=== PATIENT | female | born 1990 | race Caucasian/White ===

== ENCOUNTER 2016-06-22 04:05 | Emergency (ER) | payer SELFPAY ==
[~2016-06-22] VITALS: Ht 149.9 cm; Wt 64.5 kg
[2016-06-22 04:12] VITALS: TEMP 37.1; Ht 149.9 cm; Wt 64.5 kg
[2016-06-22] MEDS ORDERED: SODIUM CHLORIDE 0.9% 1000ML 1,000 ML IV STA (04:27)
[2016-06-22] MEDS ORDERED: DEXAMETHASONE SOD INJ 10 MG/ML VIAL IV ONE (04:30)
[2016-06-22] MEDS ORDERED: BCPILLS PO (04:38)
[2016-06-22] MEDS ORDERED: AMPICILLIN/SULBACTAM SOD INJ 3,000 MG in SODIUM CHLORIDE 0.9% 100ML 100 ML IV ONE (04:45)
[2016-06-22 04:52] LABS: BASO % 0.2 %; BASO ABS # 0.03 K/uL (0-0.2); COMPLETE YES; HEMATOCRIT 39.9 % (37-47); IG% 0.2 %; LYMPH % 16.1 %; LYMPH ABS # 2.19 K/uL (1.2-3.4); MEAN CELL VOLUME 88.3 fL (80-100); MEAN CORPUSCULAR HEMOGLOBIN 31.2 pg (25-34); MEAN CORPUSCULAR HGB CONC 35.3 g/dl (32-36); NEUT % 75.5 %; PLATELET COUNT 287 K/uL (130-400); RED BLOOD COUNT 4.52 M/uL (4.2-5.4); WHITE BLOOD COUNT 13.59 K/uL (4.8-10.8)
[2016-06-22 04:55] LABS: URINE APPEARANCE CLEAR (CLEAR); URINE BILIRUBIN NEG (NEG); URINE COLOR YELLOW; URINE EPITHELIAL CELL AUTO >30 /lpf (0-5); URINE NITRITE NEG (NEG); URINE SPECIFIC GRAVITY 1.025 (1.000-1.030); UROBILINOGEN NEG (NEG); ZZUR CULT IF INDIC CLEAN CATCH NO
[2016-06-22 04:56] LABS: MANUAL MICROSCOPIC REQUIRED? NO; REVIEW REQ? NO
[2016-06-22 05:14] LABS: BUN/CREATININE RATIO 11.6 (10-20); CALCIUM 8.6 mg/dl (8.5-10.1); CREATININE 0.6 mg/dl (0.60-1.20); POTASSIUM 3.6 mmol/L (3.5-5.1)
[2016-06-22 05:16] LABS: ALB/GLOB RATIO 0.7 (0.9-2); C-REACTIVE PROTEIN 10.8 mg/dl (0-0.29)
--- NOTE | 2016-06-22 05:23 | EMERGENCY ROOM VISIT NOTE ---
History First contact with patient: 04:20 Chief Complaint: FLU LIKE SX Stated Complaint: THROAT HURTS,EAR PAIN,SEVERE DENNIS,BODYACHE History of Present Illness The patient is a 25 year old female who presents to the Emergency Department by private vehicle for evaluation of her sore throat and headache. She reports that she developed a sore throat on Wednesday. Her symptoms have worsened today. She has pain with swallowing. She is able to tolerate her own oral secretions, however. She reports a headache that she describes as one of the worst headaches of her life. She is tried [id number]-[id number] medications without relief of symptoms. She denies any recent sick contacts. She reports no history of mono or strep. She rates her current discomfort as a 6/10. She denies any blurry vision, double vision, slurred speech, facial droop, unilateral weakness/numbness, numbness/weakness into the extremity's, neck pain , chest pain, cough, nausea, vomiting, or abdominal pain. She denies any chance for . Review of Systems A complete 10-point Review of Systems was discussed with the patient, with pertinent positives and negatives listed in the History of Present Illness. All remaining Review of Systems questions can be considered negative unless otherwise specified. Social History Smoking Status: Never Smoker Smokeless Tobacco Use: No Drug Use: none Current/Historical Medications Scheduled Amoxicillin & Pot Clavulanate (Augmentin 875-125 mg), 875 MG PO BID Control Pills ( Control Pills), 1 TAB PO DAILY Prednisone (Prednisone), 50 MG PO DAILY Allergies Coded Allergies: No Known Allergies (Unverified , 06/22/16) Physical Exam Vital Signs Date Time Temp Pulse Resp B/P Pulse Ox O2 Delivery O2 Flow Rate FiO2 06/22/16 06:25 100 18 106/67 98 Room Air 06/22/16 05:40 108 18 117/59 98 Room Air 06/22/16 04:12 37.1 138 18 120/78 98 Room Air Pain Rating (0-10): 6 Physical Exam VITAL SIGNS - Vital signs and nursing notes were reviewed. GENERAL - Well nourished, well developed 25-year-old female in no acute distress. Pt communicates well with provider and answers questions appropriately. SKIN - Without rash. HEAD - NC/AT with no obvious deformities. EYES - PERRL with EOMI bilaterally. Sclera without injection. Palpebral conjunctiva pink and moist. EARS - No deformities of external structures noted on gross examination bilaterally. No pain elicited with palpation of the tragus bilaterally. External auditory canals without discharge or otorrhea. Tympanic membranes pearly silver without retraction or bulging. No fluid or purulent material visualized behind the TM. Handle of malleus, umbo, cone of light, pars tensa/ flaccid all easily visualized. NOSE - Midline and without cyanosis. No purulent drainage noted. Nasal mucosa without mucus discharge. MOUTH/OROPHARYNX - Without perioral cyanosis. Buccal mucosa pink and moist and without leukoplakia. Tongue midline with equal elevation of palate bilaterally. Moderate tonsillar hypertrophy with erythema noted bilaterally. Good dentition noted. NECK - Neck with FROM. Supple to palpation. No lymphadenopathy noted. No nuchal rigidity. LUNGS - Chest wall symmetric without accessory muscle use, intercostals retractions, or central cyanosis. Normal vesicular breath sounds CTA B/L. No wheezes, rales, or rhonchi appreciated. CARDIAC - RRR with S1/S2. No murmur, rubs, or gallops appreciated. ABDOMEN - Abdominal contour obese without pulsations or visible masses. BS normoactive all four quadrants. No tenderness, palpable masses, hepatosplenomegaly, or ascites noted. EXTREMITIES - No pretibial edema present. +5/5 strength noted in UE/LE bilaterally. NEUROLOGIC - Cranial nerves II through XII grossly intact. Sensory intact to light touch throughout. Patellar reflexes +2/4. Patient able to perform rapid alternating movements appropriately. PSYCH - A&Ox3 and cooperates fully with examiner. Pt is very pleasant and interacts well with examiner. Medical Decision & Procedures ER Provider Diagnostic Interpretation: Radiological imaging and reports were reviewed by myself. Radiologist's Interpretation per [facility] as follows: CT HEAD: No ICH, mass effect or edema. No evidence of acute cortical stroke. Visualized sinuses and mastoid air cells are clear. Laboratory Results 06/22/16 04:35 Red Blood Count 4.52, Mean Corpuscular Volume 88.3, Mean Corpuscular Hemoglobin 31.2, Mean Corpuscular Hemoglobin Concent 35.3, Mean Platelet Volume 10.0, Neutrophils (%) (Auto) 75.5, Lymphocytes (%) (Auto) 16.1, Monocytes (%) (Auto) 7.0, Eosinophils (%) (Auto) 1.0, Basophils (%) (Auto) 0.2, Neutrophils # (Auto) 10.25, Lymphocytes # (Auto) 2.19, Monocytes # (Auto) 0.95, Eosinophils # (Auto) 0.14, Basophils # (Auto) 0.03 06/22/16 04:35 Test 06/22/16 04:35 06/22/16 04:40 White Blood Count 13.59 K/uL (4.8-10.8) Red Blood Count 4.52 M/uL (4.2-5.4) Hemoglobin 14.1 g/dL (12.0-16.0) Hematocrit 39.9 % (37-47) Mean Corpuscular Volume 88.3 fL (80-100) Mean Corpuscular Hemoglobin 31.2 pg (25-34) Mean Corpuscular Hemoglobin Concent 35.3 g/dl (32-36) Platelet Count 287 K/uL (130-400) Mean Platelet Volume 10.0 fL (7.4-10.4) Neutrophils (%) (Auto) 75.5 % Lymphocytes (%) (Auto) 16.1 % Monocytes (%) (Auto) 7.0 % Eosinophils (%) (Auto) 1.0 % Basophils (%) (Auto) 0.2 % Neutrophils # (Auto) 10.25 K/uL (1.4-6.5) Lymphocytes # (Auto) 2.19 K/uL (1.2-3.4) Monocytes # (Auto) 0.95 K/uL (0.11-0.59) Eosinophils # (Auto) 0.14 K/uL (0-0.5) Basophils # (Auto) 0.03 K/uL (0-0.2) RDW Standard Deviation 41.7 fL (36.4-46.3) RDW Coefficient of Variation 12.9 % (11.5-14.5) Immature Granulocyte % (Auto) 0.2 % Immature Granulocyte # (Auto) 0.03 K/uL (0.00-0.02) Erythrocyte Sedimentation Rate 36 mm/hr (0-21) Anion Gap 9.0 mmol/L (3-11) Est Creatinine Clear Calc Drug Dose 115.0 ml/min Estimated GFR () 144.8 Estimated GFR (Non- 124.9 BUN/Creatinine Ratio 11.6 (10-20) Calcium Level 8.6 mg/dl (8.5-10.1) Total Bilirubin 0.2 mg/dl (0.2-1) Aspartate Amino Transf (AST/SGOT) 16 U/L (15-37) Alanine Aminotransferase (ALT/SGPT) 33 U/L (12-78) Alkaline Phosphatase 99 U/L (45-117) C-Reactive Protein 10.80 mg/dl (0-0.29) Total Protein 7.9 gm/dl (6.4-8.2) Albumin 3.3 gm/dl (3.4-5.0) Globulin 4.6 gm/dl (2.5-4.0) Albumin/Globulin Ratio 0.7 (0.9-2) Monoscreen NEG (NEG) Urine Color YELLOW Urine Appearance CLEAR (CLEAR) Urine pH 6.0 (4.5-7.5) Urine Specific [place] 1.025 (1.000-1.030) Urine Protein TRACE (NEG) Urine Glucose (UA) TRACE (NEG) Urine Ketones NEG (NEG) Urine Occult Blood 3+ (NEG) Urine Nitrite NEG (NEG) Urine Bilirubin NEG (NEG) Urine Urobilinogen NEG (NEG) Urine Leukocyte Esterase NEG (NEG) Urine WBC (Auto) 1-5 /hpf (0-5) Urine RBC (Auto) 0-4 /hpf (0-4) Urine Hyaline Casts (Auto) 1-5 /lpf (0-5) Urine Epithelial Cells (Auto) >30 /lpf (0-5) Urine Bacteria (Auto) NEG (NEG) Urine Test NEG (NEG) Date/Time Source Procedure Growth Status 06/22/16 04:25 Throat Group A Streptococcus Screen - Final SPECIMEN POSITIVE FOR GROUP A BETA ST... Complete 06/22/16 04:25 Throat Group A Streptococcus Screen ([facility]ILVIA) - Final Complete Medications Administered Medications (Trade) Dose Ordered Sig/Bubba Route Start Time Stop Time Status Last Admin Dose Admin Sodium Chloride (Nss 1000ml) 1,000 ml @ 999 mls/hr Q1H1M STAT IV 06/22/16 04:27 06/22/16 05:27 DC 06/22/16 04:36 999 MLS/HR Dexamethasone Sodium Phosphate 10 mg 10 mg NOW ONCE IV 06/22/16 04:30 06/22/16 04:31 DC 06/22/16 04:36 10 MG Ampicillin Sodium/ Sulbactam Sodium/ Sodium Chloride (Unasyn Inj/Nss 100ml) 108 ml @ 200 mls/hr ONE ONCE IV 06/22/16 04:45 06/22/16 05:17 DC 06/22/16 04:44 200 MLS/HR Ketorolac Tromethamine 30 mg 30 mg NOW STAT IV 06/22/16 05:30 06/22/16 05:31 DC 06/22/16 05:35 30 MG Sodium Chloride (Nss 500ml) 500 ml @ 999 mls/hr Q31M STAT IV 06/22/16 05:31 06/22/16 06:01 DC 06/22/16 05:31 999 MLS/HR Amoxicillin/ Clavulanate Potassium (Augmentin 875MG Home Pack) 1 homepack UD ONCE PO 06/22/16 06:30 06/22/16 06:31 06/22/16 06:27 1 HOMEPACK ED Course Patient was seen and evaluated by myself. Labs were drawn, saline lock in place. The patient was hydrated with a 1000 mL normal saline bolus. She received [address] the head was ordered. Patient's rapid strep was found a positive. She was treated with IV Unasyn. Laboratory results demonstrate a mild leukocytosis. The patient is not anemic. There are no significant electrolyte abnormalities. ESR and CRP are elevated. Monospot was negative. Urinalysis does not suggest infection. CT results as above. Laboratory results and imaging studies were reviewed with the patient who acknowledges understanding. She reports mild resolve of headache at this point. Patient was treated with 30 mg Toradol intravenously. On reevaluation. The patient reports complete resolve of headache symptoms. She was instructed on following up with her primary care provider from today's visit. She was educated on worrisome symptoms for return visit to the emergency department. Patient discharged home afebrile and in good condition. Medical Decision Given the patient's presentation and stated complaints, I did elect to perform the above-mentioned workup. The patient presents today with complaints of sore throat as well as headache and bodyaches. She tested positive for strep in the emergency department. She does have a mild leukocytosis. She has moderate tonsillar hypertrophy. She does complain of an intense headache. Because of this, a CT scan was performed. She has no meningeal findings on exam, however. Patient was spotting well to IV fluids, Toradol, Decadron, and IV antibiotics. She has near complete resolve of symptoms at this point. She was placed on prednisone as well as Augmentin in the outpatient setting. She will follow-up with her primary care provider from today's visit or return for any changing/worsening symptoms. Patient discharged home afebrile and in good condition. In the evaluation and treatment of this patient, the following differential diagnoses were considered: [place], meningitis, encephalitis, viral URI, viral meningitis, Migraine Headache, Intracranial Hemorrhage, Subdural Hematoma, Subarachnoid Hemorrhage, Cerebral Aneurysm, Temporal/Giant Cell Arteritis, Tension Headache, Meningitis, Encephalitis, or Hydrocephalus. Impression Primary Impression: Strep tonsillitis Additional Impression: Headache Departure Information Dispostion Home / Self-Care Condition GOOD Prescriptions Prednisone (Prednisone) 50 Mg Tab 50 MG PO DAILY for 4 Days, #4 TAB Prov: Boni Barker PA-C 06/22/16 Amoxicillin & Pot Clavulanate (Augmentin 875-125 mg) 1 Tab Tab 875 MG PO BID for 10 Days, #20 TAB Prov: Boni Barker PA-C 06/22/16 Referrals [facility] (PCP) Patient Instructions ED Tonsillitis, [facility] Additional Instructions You were seen in the emergency department for your sore throat and Headache. The results of your rapid strep screen were found to be POSITIVE. Take medications all medications as prescribed. You were prescribed Augmentin to be taken as prescribed. This is an antibiotic. All antibiotics have the potential to cause diarrhea. Stop this medication and contact a medical provider if you were to develop any significant adverse side effects including: wheezing, shortness of breath, passing out, vomiting, or a diffuse rash. Always take antibiotics as directed and COMPLETE the ENTIRE course regardless of the improvement of your symptoms. You have been prescribed Prednisone 50 mg to be taken orally once a day for the next 4 days. This is an anti-inflammatory medicine to be used to help minimize your symptoms. You should take the COMPLETE course of the medication. For pain and fever control, you can use the following [id number]-[id number] medicines (if >12 yo): - Regular strength (325mg/tab) Tylenol (acetaminophen) 2 tabs every 4-6 hours as needed. Do not exceed 12 tablets in a 24 hour period. Avoid taking more than 4 grams (4000 mg) of Tylenol per day. This includes any other sources of acetaminophen you may take on a regular basis. - Regular strength (200 mg/tab) Advil (ibuprofen) 1-2 tabs every 4-6 hours as needed. Do not exceed a dose of 3200 mg per day. - For best results, alternate dosing of Tylenol and Advil. In addition to your prescribed medications, you can also use the following home remedies: - Warm salt-water gargles 3 times per day can soothe your throat and help to fight infection. - Warm tea with honey can soothe your throat. Return to the emergency department if your symptoms persist or worsen over the next 2-3 days despite treatment course outlined above. Return to the emergency department if you develop the following symptoms of: inability to swallow solids , liquids, or drool; excessive wheezing or inability to catch your breath; or intractable fever or pain. Follow up with your primary care provider in 2-3 days from today's emergency department visit. Problem Qualifiers Additional Impression: Headache Headache type: unspecified Headache chronicity pattern: acute headache Intractability: not intractable Qualified Codes: R51 - Headache
[2016-06-22] MEDS ORDERED: KETOROLAC TROMETHAMINE 30 MG/ML VIAL IV STA (05:30)
[2016-06-22] MEDS ORDERED: SODIUM CHLORIDE 0.9% 500ML 500 ML IV STA (05:31)
[2016-06-22] MEDS ORDERED: PRED50TA PO (06:19)
[2016-06-22] MEDS ORDERED: AMOX875T PO (06:19)
[2016-06-22 06:25] VITALS: BP 106/67; PULSE 100; O2SAT 98
[2016-06-22] MEDS ORDERED: AMOXICIL/CLAVU 875MG HOME PACK PO ONE (06:30)
--- NOTE | 2016-06-22 06:32 | DIAGNOSTIC IMAGING REPORT ---
CT HEAD WITHOUT CONTRAST (CT) CLINICAL HISTORY: Posterior headache COMPARISON STUDY: No previous studies for comparison. TECHNIQUE: Axial CT of the brain is performed from the vertex to the skull base. IV contrast was not administered for this examination. CT DOSE: 537.48 mGy.cm FINDINGS: No intra or extra-axial mass lesions are visualized. There is no CT evidence of acute cortical infarction. There is no evidence of midline shift. There is no acute hemorrhage. No calvarial fractures are visualized. There is no evidence of pathologic ventricular dilatation. There is no evidence of acute sinusitis IMPRESSION: Normal noncontrast head CT. Electronically signed by: Kyree Ramos M.D. 06/22/2016 6:30 AM Dictated Date/Time: 06/22/2016 6:29 AM
== END 2016-06-22 06:29 | disposition home or self-care (01) ==
LOC: C.EDB 04:06
DX: J03.00 Acute streptococcal tonsillitis, unspecified (principal); R51 Headache; Z79.52 Long term (current) use of systemic steroids